=== PATIENT | male | born 1970 | race Caucasian/White ===

== ENCOUNTER 2020-07-07 17:44 | Observation (INO) ==
[2020-07-07] MEDS ORDERED: SODIUM CHLORIDE 0.9% 1000ML 1,000 ML IV SCH (19:15)
[2020-07-07] MEDS ORDERED: ONDANSETRON INJ 2 MG/ML 2 ML VIAL IV STA (19:19)
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
[2020-07-07 20:09] LABS: Hematocrit (blood only) 46.6 % (42-52); Hemoglobin 16.4 g/dL (14.0-18.0); Mean Corpuscular Hemoglobin 32.7 pg (25-34); Mean Corpuscular Hgb Conc 35.2 g/dL (32-36); Mean Corpuscular Volume 92.8 fL (80-100); Mean Platelet Volume 10.4 fL (7.4-10.4); Platelet Count 201 K/uL (130-400); RDW Standard Deviation 43.8 fL (36.4-46.3); Red Blood Count 5.02 M/uL (4.7-6.1); White Blood Count 16.47 K/uL (4.8-10.8)
[2020-07-07 20:14] LABS: Appearance Urine Clear (Clear); Bacteria Urine Automated Negative (Negative); Blood Urine Negative (Negative); Glucose Urine UA Negative (Negative); Ketones Urine 1+ (Negative); Leukocyte Esterase Urine Trace (Negative); Nitrite Urine Positive (Negative); Protein Urine 1+ (Negative); Specific Gravity Urine 1.034 (1.000-1.030); Urobilinogen Urine Negative (Negative); pH Urine 5.5 (4.5-7.5)
[2020-07-07 20:18] LABS: Bilirubin Urine 1+ (Negative); Color Urine Dark Yellow
[2020-07-07 20:19] LABS: Ictotest Urine Positive (Negative)
[2020-07-07 20:25] LABS: Albumin Level 3.8 gm/dl (3.4-5.0); Calcium 9.9 mg/dl (8.5-10.1); Creatinine Clr Calc Pharmacy 74.1 ml/min; Est GFR (African American) 82.3; Potassium 4.7 mmol/L (3.5-5.1)
[2020-07-07 20:28] LABS: Albumin Globulin Ratio 0.9 (0.9-2); Bilirubin,Total 2.7 mg/dl (0.2-1); Globulin 4.4 gm/dl (2.5-4.0); Total Protein 8.2 gm/dl (6.4-8.2)
--- NOTE | 2020-07-07 20:30 | CT Scan Report ---
ABDOMEN AND PELVIS CT WITHOUT CONTRAST CT DOSE: 449.61 mGy.cm HISTORY: Acute bilateral flank pain with vomiting lower abd pain, vomiting TECHNIQUE: Multiaxial CT images of the abdomen and pelvis were performed without contrast. A dose lo wering technique was utilized adhering to the principles of ALARA. COMPARISON STUDY: Lumbar spine radiographs 02/17/2015. FINDINGS: Clear lung bases. No pneumatosis or pneumoperitoneum. Imaged inferior cardiac chambers are unremarkab le. The spleen, pancreas, adrenal glands and gallbladder are unremarkable. Unenhanced liver is also w ithin normal limits. Mild nonspecific bilateral perinephric stranding. No urolith or obstructive urop athy. Partial distention of the bladder. Prominent prostate. No aortic aneurysm or adenopathy. There is no bowel obstruction. Mild colonic diverticulosis. The appendix is dilated and fluid-filled, 14 mm. 6 mm appendicolith. Wall thickening of the appendix is noted with moderate periappendiceal st randing. No drainable fluid collection. Unremarkable soft tissues. No acute fracture identified. Hunter te compression deformities at T12 and L1. IMPRESSION: 1. Findings compatible with moderate acute uncomplicated appendicitis with a subcentimeter appendicol ith. No evidence of perforation or drainable fluid collection. 2. No bowel obstruction. ACT 112: Negative or not required by law. The above report was generated using voice recognition software. It may contain grammatical, syntax o r spelling errors. Electronically signed by: Brock Raygoza M.D. 07/07/2020 8:28 PM
[2020-07-07 20:40] LABS: Basophils # (auto) 0.02 K/uL (0-0.2); Basophils % (auto) 0.1 %; Immature Granulocytes # (auto) 0.04 K/uL (0.00-0.02); Immature Granulocytes % (auto) 0.2 %; Lymphocytes # (auto) 1.38 K/uL (1.2-3.4); Lymphocytes % (auto) 8.4 %; Monocytes # (auto) 1.01 K/uL (0.11-0.59); Monocytes % (auto) 6.1 %; Neutrophils # (auto) 14.02 K/uL (1.4-6.5); Neutrophils % (auto) 85.2 %
[2020-07-07] MEDS ORDERED: cefOXitin 2,000 MG/60 ML BAG IV STA (21:05)
[2020-07-07] MEDS ORDERED: HYDROmorphone INJ 0.5 MG/0.5 ML SYR IV PRN (21:05)
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
[2020-07-07] MEDS ORDERED: LIDOCAINE/EPINEPHRINE 1% 20 ML VIAL ONE (22:20)
[2020-07-07] MEDS ORDERED: fentaNYL citrate 100 MCG/2 ML VIAL ONE (23:06)
[2020-07-07] MEDS ORDERED: ROCURONIUM BROMIDE 10 MG/ML 5 ML VIAL IV ONE (23:41)
[2020-07-07] MEDS ORDERED: SUCCINYLCHOLINE CHLORIDE 20 MG/ML 10 ML VIAL IV ONE (23:41)
[2020-07-07] MEDS ORDERED: KETOROLAC 30 MG/ML VIAL ONE (23:41)
[2020-07-07] MEDS ORDERED: PROPOFOL IV EMULSION 10 MG/ML 20 ML VIAL IV ONE (23:41)
[2020-07-07] MEDS ORDERED: LIDOCAINE 2% 20 MG/ML 5 ML SYR IV ONE (23:41)
[2020-07-07] MEDS ORDERED: ONDANSETRON INJ 2 MG/ML 2 ML VIAL ONE (23:41)
[2020-07-07] MEDS ORDERED: NEOSTIGMINE METHYLSULFATE 5 MG/5 ML SYR ONE (23:45)
[2020-07-07] MEDS ORDERED: GLYCOPYRROLATE 0.2 MG/ML VIAL ONE (23:45)
[2020-07-07] MEDS ORDERED: MoRPHine SULFATE 2 MG/ML CARP ONE (23:47)
--- NOTE | 2020-07-08 00:03 | Post Operative Brief Note ---
PG Immediate Post Op with CF Date of Surgery July 08, 2020 Pre & Post Diagnosis Operation Date: 07/07/20 22:15 Pre-Op Diagnosis: Appendicitis Post-Op Diagnosis: Gangrenous Appendicitis I identified the patient and participated in the time-out.: Yes Procedure Operation Date: 07/07/20 22:15 Actual Procedures p Laparoscopic Appendectomy(Not Applicable) - Horacio Stein MD Surgeon Horacio Stein MD Air Saw Operator Mani DE LA CRUZ Estimated Blood Loss 5 Findings Consistent with Post-Op Diagnosis Specimens Specimen Description: A. Appendix
[2020-07-08] MEDS ORDERED: ATROPINE SULFATE 0.1 MG/ML 10ML SYR IV PRN (00:19)
[2020-07-08] MEDS ORDERED: fentaNYL citrate 100 MCG/2 ML VIAL IV PRN (00:19)
[2020-07-08] MEDS ORDERED: ONDANSETRON INJ 2 MG/ML 2 ML VIAL IV PRN ×2 (00:19→01:09)
[2020-07-08] MEDS ORDERED: HYDROmorphone INJ 2 MG/ML SYR/VIAL IV PRN (00:19)
[2020-07-08] MEDS ORDERED: ePHEDrine sulfate 50 MG/ML AMP IV PRN (00:19)
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
--- NOTE | 2020-07-08 00:20 | Operative Report ---
PG Post Operative Report Pre & Post Diagnosis Operation Date: 07/07/20 22:15 Pre-Op Diagnosis: Appendicitis Post-Op Diagnosis: Gangrenous Appendicitis I identified the patient and participated in the time-out.: Yes Procedure Operation Date: 07/07/20 22:15 Actual Procedures p Laparoscopic Appendectomy(Not Applicable) - Horacio Stein MD The patient was brought into the operating theater general trach anesthesia the abdomen was prepped byline solution properly draped a timeout was had patient was identified made a small incision supraumbilically sufficient enough to accommodate a 5 mm trocar we first used a Veress needle to insufflate to 15 mmHg then followed by 5 mm trocar point of entry inspected as we placed the camera no injury identified return the camera towards right lower quadrant could not see the cecum he did have a left inguinal hernia which easily appreciated there was no contents in the hernia at this point on direct visualization placed a 5 mm right upper quadrant port with preemptive local analgesia of 1% Xylocaine at this point I was able to place a grasper moved the omentum and we could see the cecum that was slightly inflamed I could not see the appendix at this point we enlarged the incision in the umbilical area to accommodate 11 mm trocar we dilated the 5 mm tract with a [place] and on direct visualization placed the left millimeter trocar the 5 mm that we had removed we placed in the left lower quadrant direct visualization with preemptive local analgesic the camera was then placed in left lower quadrant and the local and right upper quadrant port we were able then to move the omentum to the left after we placed the patient is rotated to the left and will Trendelenburg at this time by elevating the cecum I could see the appendix which was ischemic did not see any significant fluid in the area as it was ruptured but on elevating it is gravid we did have some drainage from the appendix itself whether or not it was just minimal pressure from her grasper around the area or maybe had some microperforation having said that I created a window between the mesoappendix and the cecum and was able to use the blue load to fire completely remove the appendix from the cecal the staple line was intact hemostasis was good the mesoappendix was quite thickened we then used created a window's using fine grasper then I went through the appendix taken little bites with 10mm clips to we were able to remove it completely elevate the appendix and check in the mesoappendix that we freed up was free of any bleeding we then placed the patient in reverse Trendelenburg position rotated to the right suction it out the area copiously hemostasis was excellent we rechecked the staple line on the cecum and no bleeding was identified the staple line was well away from the terminal ileum I elected to drain the area with 18 Jah drain round it was brought in through the left lower quadrant incision trocar site and brought up to the right upper quadrant fractionization we placed the the drain there was right gutter down the pelvis attaching skin edge with 2-0 silk at this point area removed individual trochars and direct visualization I closed the fascia in the supraumbilical trocar site with 2 interrupted 0 Vicryl sutures Monocryl was used for subcu Steri-Strips applied procedure was tolerated well by the patient estimated blood loss approximately 5 cc patient was taken recovery room in good condition addendum Mani DE LA CRUZ was present throughout the procedure and helped the retraction exposure and wound closure Surgeon Horacio Stein MD Battery Technician Mani DE LA CRUZ Estimated Blood Loss 5 Findings Consistent with Post-Op Diagnosis Specimens appendix Description of Procedure merda I attest to the content of the Intraoperative Record and any orders documented therein. Any exceptions are noted below.
[2020-07-08] MEDS ORDERED: MoRPHine SULFATE 2 MG/ML CARP IV PRN (01:09)
[2020-07-08] MEDS ORDERED: OXYCODONE HCL IR 5 MG TAB (IMMEDIATE RELEASE) PO PRN (01:09)
[2020-07-08] MEDS ORDERED: SODIUM CHLORIDE 0.9% 1000ML 1,000 ML IV SCH (01:09)
[2020-07-08] MEDS: ACETAMINOPHEN 1,000 MG/100 ML VIAL IV SCH ×2 (01:33→10:20)
[2020-07-08] MEDS: KETOROLAC TROMETHAMINE 15 MG/ML VIAL IV SCH ×3 (01:33→14:10)
[2020-07-08] MEDS: cefOXitin 2,000 MG in DEXTROSE 5% 50 ML IV SCH ×3 (01:56→14:10)
--- NOTE | 2020-07-08 06:43 | Anesthesiology Progress Note ---
Date of Service July 08, 2020 Anesthesia Post Procedure Vital Signs Vital Signs: Temp Pulse Pulse Pulse Resp BP BP 07/08/20 04:30 36.8 C 63 18 88/56 L 07/08/20 03:00 37 C 69 18 88/48 L 07/08/20 02:00 37.2 C 76 16 101/63 07/08/20 01:25 37.3 C 81 18 100/61 07/08/20 01:11 37.2 C 70 16 101/63 07/08/20 00:55 64 17 103/59 L 07/08/20 00:45 37.3 C 52 L 20 111/62 07/08/20 00:35 66 20 110/63 07/08/20 00:25 64 20 110/65 07/08/20 00:15 37.2 C 52 L 18 119/67 07/07/20 22:48 79 20 128/74 07/07/20 22:42 128/74 07/07/20 22:00 79 31 H 118/68 07/07/20 21:00 70 28 H 112/56 L 07/07/20 20:01 66 18 120/68 07/07/20 20:00 70 31 H 120/68 07/07/20 17:55 37.2 C 102 H 18 102/69 BP Pulse Ox 07/08/20 04:30 97/61 L 97 07/08/20 03:00 93/57 L 95 07/08/20 02:00 95 07/08/20 01:25 96 07/08/20 01:11 93 07/08/20 00:55 98 07/08/20 00:45 99 07/08/20 00:35 99 07/08/20 00:25 100 07/08/20 00:15 99 07/07/20 22:48 97 07/07/20 22:42 07/07/20 22:00 97 07/07/20 21:00 98 07/07/20 20:01 98 07/07/20 20:00 07/07/20 17:55 97 Pain Intensity Abdomen: Pain Intensity: 5 Transfer of Care Handoff Completed per policy Notes Mental Status: alert / awake / arousable Patient Amnestic to Procedure: Yes Nausea / Vomiting: adequately controlled Pain: adequately controlled Airway Patency, RR, SpO2: stable & adequate BP & HR: stable & adequate Hydration State: stable & adequate Anesthetic Complications: no major complications apparent
--- NOTE | 2020-07-08 09:14 | Surgery Progress Note ---
Date of Service July 08, 2020 Assessment & Plan (1) Appendicitis: s/p lap appy seen with Dr. Emil walters for d/c on po abx with drain Admission and Anticipated Discharge Date Admission Date: July 08, 2020 Subjective no c/o Physical Exam Gastrointestinal (Abdomen): Inspection/Auscultation: + abdominal surgical drain present (serosang) Percussion/Palpation: abdomen soft; abdomen nontender Results & Data ([facility]) Vital Signs (Past 12 Hours) Vital Signs Temp Pulse Pulse Pulse Resp BP BP 07/08/20 07:08 36.5 C 71 20 94/58 L 07/08/20 04:30 36.8 C 63 18 88/56 L 07/08/20 03:00 37 C 69 18 88/48 L 07/08/20 02:00 37.2 C 76 16 101/63 07/08/20 01:25 37.3 C 81 18 100/61 07/08/20 01:11 37.2 C 70 16 101/63 07/08/20 00:55 64 17 103/59 L 07/08/20 00:45 37.3 C 52 L 20 111/62 07/08/20 00:35 66 20 110/63 07/08/20 00:25 64 20 110/65 07/08/20 00:15 37.2 C 52 L 18 119/67 07/07/20 22:48 79 20 128/74 07/07/20 22:42 128/74 07/07/20 22:00 79 31 H 118/68 BP Pulse Ox 07/08/20 07:08 95 07/08/20 04:30 97/61 L 97 07/08/20 03:00 93/57 L 95 07/08/20 02:00 95 07/08/20 01:25 96 07/08/20 01:11 93 07/08/20 00:55 98 07/08/20 00:45 99 07/08/20 00:35 99 07/08/20 00:25 100 07/08/20 00:15 99 07/07/20 22:48 97 07/07/20 22:42 07/07/20 22:00 97 PG Care Time/CCT Total # of Minutes Spent Total Time Spent with Patient: Total time spent is greater than 50% in coordination of care (as documented) at patient's floor/unit and/or counseling patient: Coding Level of Care Code None Diagnoses Appendicitis K37
--- NOTE | 2020-07-11 03:40 | Discharge Summary (DS) ---
ADMISSION DIAGNOSIS: Acute appendicitis. DISCHARGE DIAGNOSIS: Acute appendicitis. HOSPITAL COURSE: This is a 50-year-old male who presented to [facility] on 07/07/2020 secondary to abdominal pain. In the Emergency Department, the patient had a CT scan of the abdomen that showed acute appendicitis. The patient was taken to the operating room the same day where an appendectomy was performed laparoscopically. The patient was found to have a perforated appendix. He was continued on antibiotics. The following day, the patient was stable, was tolerating a diet, and was deemed stable for discharge home. He was provided with appropriate wound care, diet, and followup information. He was told to call the office with any questions.
== END 2020-07-08 17:28 | disposition home or self-care (01) ==
LOC: ED 17:44 → OR 22:48 → 3W 22:48